=== PATIENT | male | born 1955 | race Caucasian/White ===

== ENCOUNTER 2022-05-14 20:48 | Emergency (ER) | payer MEDICARE, SELFPAY ==
[2022-05-14 20:54] VITALS: BP 190/88; PULSE 62; RESP 19; TEMP 37.9; O2SAT 97; BMI 29.1
--- NOTE | 2022-05-14 20:54 | ED_ITS ---
HPI - Sepsis General Chief Complaint: Fever Evaluation Narrative: 66-year-old male nonsmoker with history of hypertension presents with his in the chief complaint of about 24 hours of chills, fever and frequent episodes of diarrhea. He and other friends and family were out at a restaurant and he ate some chili that tasted bad, easy only person that ate this chili, he is also the only person that has been sick. About 3-4 hours after eating a chili he started having frequent loose stools, stating even up to 15 episodes of diarrhea yesterday. He is nauseated but denies vomiting. He denies any chest pain or shortness of breath. He does have a poor appetite. He has decreased urine output and states it has become dark. He denies any recent antibiotics or international travel Review of Systems Review of Systems Narrative: GENERAL: See HPI HEENT: Denies sinus pain, ear pain, sore throat, difficulty swallowing, dizziness. RESPIRATORY: Denies dyspnea, cough, wheezing, hemoptysis, sputum. CARDIOVASCULAR: Denies chest pain, palpitations, orthopnea, edema, GASTROINTESTINAL: See HPI : Denies dysuria, frequency, incontinence, hematuria, urinary retention. MUSCULOSKELETAL: denies weakness, joint pain, or bony pain SKIN: Denies rash, skin lesions, or other NEUROLOGIC: Denies weakness, headache, numbness, change in speech, confusion, seizures, incoordination. PSYCHIATRIC: No concerning psychosocial issues. 12 point review of systems is negative except for those stated above Patient History Social History Smoking Status: Never smoker Exam Narrative Exam Narrative: GENERAL: [66] year old patient appears stated age. Well-developed patient, in mild distress. HEAD: Atraumatic. Normocephalic. EYES: Pupils equal round and reactive. Extraocular motions intact. No scleral icterus. No injection or drainage. ENT: Nose without bleeding, purulent drainage. Throat without erythema, tonsillar hypertrophy or exudate. Airway patent. NECK: Trachea midline. Non tender CARDIOVASCULAR: Regular rate and rhythm without murmurs, gallops, or rubs. RESPIRATORY: Clear to auscultation. Breath sounds equal bilaterally. No wheezes, rales, or rhonchi. GASTROINTESTINAL: Abdomen soft, non-tender, nondistended. EXTREMITIES: No edema or joint tenderness. BACK: Nontender without deformity or crepitance. No flank tenderness. NEURO: AOx3. SKIN: No rash or erythema of visible areas Initial Vital Signs Initial Vital Signs: Vital Signs Temperature 100.2 F H 05/14/22 20:54 Pulse Rate 62 05/14/22 20:54 Respiratory Rate 19 05/14/22 20:54 Blood Pressure 190/88 H 05/14/22 20:54 Pulse Oximetry 97 05/14/22 20:54 Oxygen Delivery Method 05/14/22 20:54 Course Orders Ordered: ED Orders 05/14/22 21:06 COVID19 -Nasal RAPID/Pre-Proc Stat 05/14/22 21:22 Complete Blood Count AUTO DIFF Stat Comprehensive Metabolic Panel Stat 05/14/22 21:35 Blood Culture Stat 05/14/22 22:44 Urinalysis and Microscopic Stat 05/15/22 02:50 GI Panel (Film Array) Stat Discontinued Medications Sodium Chloride (Normal Saline 0.9%) 1,000 mls @ 1,000 mls/hr IV BOLUS ONE Stop: 05/14/22 22:29 Last Infusion: 05/14/22 22:31 Dose: 0 mls/hr Documented By: Admin: 05/14/22 21:30 Dose: 1,000 mls/hr Documented By: KODI Sodium Chloride (Normal Saline 0.9%) 1,000 mls @ 1,000 mls/hr IV BOLUS ONE Stop: 05/14/22 23:57 Last Infusion: 05/15/22 00:50 Dose: 0 mls/hr Documented By: Admin: 05/14/22 23:10 Dose: 1,000 mls/hr Documented By: KODI Ketorolac Tromethamine (Ketorolac 30 Mg/Ml Vial) 15 mg IV NOW ONE Stop: 05/14/22 22:50 Last Admin: 05/14/22 23:09 Dose: 15 mg Documented By: KODI Ondansetron HCl (Ondansetron 4 Mg/2 Ml Inj) 4 mg IV NOW ONE Stop: 05/14/22 22:59 Last Admin: 05/14/22 23:09 Dose: 4 mg Documented By: KODI Pantoprazole Sodium (Pantoprazole 40 Mg Vial) 40 mg IV NOW ONE Stop: 05/14/22 22:59 Last Admin: 05/14/22 23:09 Dose: 40 mg Documented By: CTS Vital Signs Vital signs: Vital Signs - 8 hr 05/14/22 20:54 Temperature 100.2 F H Pulse Rate 62 Respiratory Rate 19 Blood Pressure 190/88 H Pulse Oximetry 97 Oxygen Delivery Method Room Air Sepsis Guideline Criteria Treatment Initiated Antibiotics:: IV antimicrobials will be initiated as soon as possible after recognition of sepsis state and within one hour for both sepsis and septic shock. MDM - Sepsis Lab Data Result diagrams: 05/14/22 21:05/14/22: Labs: Lab Results 05/14/22 05/14/22 05/14/22 Range/Units 21:06 21:22 21: WBC 8.8 (4.5-11.0) X10^3/uL RBC 4.32 L (4.5-5.9) X10^6/uL Hgb 13.6 (13.5-17.5) g/dL Hct 39.2 L (41-53) % MCV 90.8 (80-100) fL MCH 31.4 (26-34) PG MCHC 34.6 (30-36) % RDW 13.9 (11.6-14.8) % Plt Count 206 (150-400) X10^3/uL Neut % (Auto) 85.8 H (50-75) % Lymph % (Auto) 6.9 L (25-40) % [place] % (Auto) 4.7 (3-14) % Eos % (Auto) 2.2 (2-4) % Baso % (Auto) 0.4 (0-2) % Neut # (Auto) 7500 H (1905-8140) /uL Lymph # (Auto) 600 L (3345-8134) /uL [place] # (Auto) 400 (0-900) /uL Eos # (Auto) 200 (0-450) /uL Baso # (Auto) 0 (0-100) /uL Sodium 134 L (137-145) mmol/L Potassium 3.9 (3.4-5.1) mmol/L Chloride 105 (98-107) mmol/L Carbon Dioxide 19 L (22-32) mmol/L BUN 16 (9-20) mg/dL Creatinine 1.01 (0.66-1.25) mg/dL Estimated GFR > 60 (>60) mL/min BUN/Creatinine Ratio 15.8 (6-22) Glucose 145 H (80-110) mg/dL Calcium 8.4 (8.4-10.2) mg/dL Total Bilirubin 1.3 (0.2-1.3) mg/dL AST 21 (17-59) IU/L ALT 19 (<50) IU/L Alkaline Phosphatase 62 (38-126) U/L Total Protein 7.2 (6.3-8.2) g/dL Albumin 4.2 (3.5-5.0) g/dL Globulin 3.0 (1.7-4.1) g/dL Albumin/Globulin Ratio 1.4 (1.0-2.8) Urine Color Urine Appearance Urine pH (4.5-8.0) Ur Specific [place] (1.000-1.035) Urine Protein (Negative) Urine Glucose (UA) (Negative) g/dL Urine Ketones (NEGATIVE) Urine Occult Blood (Negative) Urine Nitrate (Negative) Urine Bilirubin (NEGATIVE) Urine Urobilinogen (0.2) E.U./dL Ur Leukocyte Esterase (NEGATIVE) Urine RBC (0-5/HPF) Urine WBC (0-5/HPF) Urine Bacteria (None) Ur Culture Indicated? Micro UA Comment Stl C. cayetanensis PCR (Not Detect) Stool Rotavirus (PCR) (Not Detect) Stool Adenovirus (PCR) (Not Detect) Stool Astrovirus (PCR) (Not Detect) Stool Cryptosporidium PCR (Not Detect) Stl E.coli Shiga Tox PCR (Not Detect) St Sh/Enteroin Ecoli PCR (Not Detect) Stool E coli O157 PCR (Not Detect) Stl Enterotoxigenic E PCR (Not Detect) Stool EPEC (PCR) (Not Detect) Stl E. histolytica PCR (Not Detect) Stool Giardia Lamblia PCR (Not Detect) Stool Sapovirus (PCR) (Not Detect) Stl P. shigelloides PCR (Not Detect) St Y.enterocolitica PCR (Not Detect) Stool Vibrio (PCR) (Not Detect) Stl Vibrio cholerae PCR (Not Detect) Stl Enteroaggr Ecoli PCR (Not Detect) Stl Norovirus GI/GII PCR (Not Detect) Campylobacter (PCR) (Not Detect) C. difficile Tox (PCR) (Not Detect) SARS-CoV-2 (PCR) Negative (Negative) Salmonella (PCR) (Not Detect) 08/05/22 08/06/22 Range/Units 22:44 02:50 WBC (4.5-11.0) X10^3/uL RBC (4.5-5.9) X10^6/uL Hgb (13.5-17.5) g/dL Hct (41-53) % MCV (80-100) fL MCH (26-34) PG MCHC (30-36) % RDW (11.6-14.8) % Plt Count (150-400) X10^3/uL Neut % (Auto) (50-75) % Lymph % (Auto) (25-40) % [place] % (Auto) (3-14) % Eos % (Auto) (2-4) % Baso % (Auto) (0-2) % Neut # (Auto) (0395-1521) /uL Lymph # (Auto) (8579-3150) /uL [place] # (Auto) (0-900) /uL Eos # (Auto) (0-450) /uL Baso # (Auto) (0-100) /uL Sodium (137-145) mmol/L Potassium (3.4-5.1) mmol/L Chloride (98-107) mmol/L Carbon Dioxide (22-32) mmol/L BUN (9-20) mg/dL Creatinine (0.66-1.25) mg/dL Estimated GFR (>60) mL/min BUN/Creatinine Ratio (6-22) Glucose (80-110) mg/dL Calcium (8.4-10.2) mg/dL Total Bilirubin (0.2-1.3) mg/dL AST (17-59) IU/L ALT (<50) IU/L Alkaline Phosphatase (38-126) U/L Total Protein (6.3-8.2) g/dL Albumin (3.5-5.0) g/dL Globulin (1.7-4.1) g/dL Albumin/Globulin Ratio (1.0-2.8) Urine Color Yellow Urine Appearance Clear Urine pH 5.0 (4.5-8.0) Ur Specific [place] <=1.005 (1.000-1.035) Urine Protein Negative (Negative) Urine Glucose (UA) Negative (Negative) g/dL Urine Ketones Negative (NEGATIVE) Urine Occult Blood Trace-lysed (Negative) Urine Nitrate Negative (Negative) Urine Bilirubin Negative (NEGATIVE) Urine Urobilinogen 0.2 (0.2) E.U./dL Ur Leukocyte Esterase Negative (NEGATIVE) Urine RBC None seen (0-5/HPF) Urine WBC None seen (0-5/HPF) Urine Bacteria None seen (None) Ur Culture Indicated? Cult not indicated Micro UA Comment Microscopic normal Stl C. cayetanensis PCR Not detected (Not Detect) Stool Rotavirus (PCR) Not detected (Not Detect) Stool Adenovirus (PCR) Not detected (Not Detect) Stool Astrovirus (PCR) Not detected (Not Detect) Stool Cryptosporidium PCR Not detected (Not Detect) Stl E.coli Shiga Tox PCR Not detected (Not Detect) St Sh/Enteroin Ecoli PCR Not detected (Not Detect) Stool E coli O157 PCR Not detected (Not Detect) Stl Enterotoxigenic E PCR Not detected (Not Detect) Stool EPEC (PCR) Not detected (Not Detect) Stl E. histolytica PCR Not detected (Not Detect) Stool Giardia Lamblia PCR Not detected (Not Detect) Stool Sapovirus (PCR) Not detected (Not Detect) Stl P. shigelloides PCR Not detected (Not Detect) St Y.enterocolitica PCR Not detected (Not Detect) Stool Vibrio (PCR) Not detected (Not Detect) Stl Vibrio cholerae PCR Not detected (Not Detect) Stl Enteroaggr Ecoli PCR Not detected (Not Detect) Stl Norovirus GI/GII PCR Detected H (Not Detect) Campylobacter (PCR) Not detected (Not Detect) C. difficile Tox (PCR) Not detected (Not Detect) SARS-CoV-2 (PCR) (Negative) Salmonella (PCR) Not detected (Not Detect) MDM Narrative Medical decision making narrative: Patient feeling significant improvement after above-stated therapies. He receives 2 bags of IV fluid was able to tolerate orals and ambulatory through the department. Return precautions discussed and questions answered to his apparent satisfaction Discharge Plan Departure Patient Disposition: Home Clinical Impression: Diarrhea, Norovirus Instructions: Diarrhea, Norovirus Infection Activity Restrictions/Additional Instructions: *You have been diagnosed with [diarrhea and abdominal cramping likely due to food-borne illness] * As we discussed your history and physical exam as well as labs and imaging are very reassuring. There is no evidence of any severe diagnoses that would require a specific or immediate intervention. *What to do: *Please continue to take your regular medications as directed. *Please follow up with your primary care provider in 2-3 days, call for an appointment. Let them know you were seen in the Emergency Department and that we ask that you be seen in follow up. We will electronically transmit a record of today's note if your PCP is in our system *Please consider a clear liquid diet for the next 24-48 hours and then slowly advance to regular as tolerated. Also, try to avoid alcohol, nicotine, caffeine, spicy, acidic or fatty foods as this may worsen your symptoms *If you do not have a primary care provider please contact the [facility] Resource line at [phone]. They will ask some questions about your medical history and help get you set up with a doctor in the community. *Return to Emergency Department if you should have any new, worsening or concerning symptoms, such as [fever greater than 101 F, shaking chills, worsening pain, persistent vomiting or other bothersome symptoms] Visit Report Forms: Patient Portal/API
[2022-05-14 21:27] LABS: COVID19 -Nasal RAPID Negative (Negative)
[2022-05-14] MEDS: SODIUM CHLORIDE 0.9% 1,000 ML 1000 ML IV ×2 (21:30→23:10)
[2022-05-14 21:34] LABS: Add Manual Diff / Slide Review NO; Basophils Absolute Auto 0 /uL (0-100); Basophils Percent Auto 0.4 % (0-2); Eosinophils Absolute Auto 200 /uL (0-450); Eosinophils Percent Auto 2.2 % (2-4); Hematocrit 39.2 % (41-53); Hemoglobin 13.6 g/dL (13.5-17.5); Lymphocytes Absolute Auto 600 /uL (1100-4500); Lymphocytes Percent Auto 6.9 % (25-40); Mean Corpuscular HGB Conc 34.6 % (30-36); Mean Corpuscular Hemoglobin 31.4 PG (26-34); Mean Corpuscular Volume 90.8 fL (80-100); Monocytes Absolute Auto 400 /uL (0-900); Monocytes Percent Auto 4.7 % (3-14); Neutrophils Absolute Auto 7500 /uL (1500-7000); Neutrophils Percent Auto 85.8 % (50-75); Platelet Count 206 X10^3/uL (150-400); Red Blood Cell Count 4.32 X10^6/uL (4.5-5.9); Red Cell Distribution Width 13.9 % (11.6-14.8); White Blood Cell Count 8.8 X10^3/uL (4.5-11.0)
[2022-05-14 21:48] LABS: Alanine Aminotransferase 19 IU/L (<50); Albumin 4.2 g/dL (3.5-5.0); Albumin Globulin Ratio 1.4 (1.0-2.8); Alkaline Phosphatase 62 U/L (38-126); Aspartate Aminotransferase 21 IU/L (17-59); BUN Creatinine Ratio 15.8 (6-22); Bilirubin Total 1.3 mg/dL (0.2-1.3); Blood Urea Nitrogen 16 mg/dL (9-20); Calcium 8.4 mg/dL (8.4-10.2); Carbon Dioxide 19 mmol/L (22-32); Chloride 105 mmol/L (98-107); Estimated Glomerular Filt Rate > 60 mL/min (>60); Glucose 145 mg/dL (80-110); HEMOLYSIS < 15 (0-50); Potassium 3.9 mmol/L (3.4-5.1); Sodium 134 mmol/L (137-145); Total Protein 7.2 g/dL (6.3-8.2)
[2022-05-14 22:54] LABS: Appearance Urine UA CLEAR; Bilirubin Urine UA NEGATIVE (NEGATIVE); Color Urine UA YELLOW; Glucose Urine UA NEGATIVE (Negative); Ketones Urine UA NEGATIVE (NEGATIVE); Leukocyte Esterase Urine UA NEGATIVE (NEGATIVE); Nitrite Urine UA NEGATIVE (Negative); Occult Blood Urine UA TRACE-LYSED (Negative); Protein Urine UA NEGATIVE (Negative); Specific Gravity Urine UA <=1.005 (1.000-1.035); Urobilinogen Urine UA 0.2 E.U./dL (0.2)
[2022-05-14 22:56] LABS: Bacteria Urine None Seen; Culture Indicated Urine Cult Not Indicated; RBC Urine None Seen (0-5/HPF); Urine Comments Microscopic Normal; WBC Urine None Seen (0-5/HPF)
[2022-05-14] MEDS: ONDANSETRON 4 MG/2 ML INJ IV (23:09)
[2022-05-14] MEDS: PANTOPRAZOLE 40 MG VIAL IV (23:09)
[2022-05-14] MEDS: KETOROLAC 30 MG/ML VIAL 15 MG IV (23:09)
[2022-05-15 04:17] LABS: Adenovirus F 40/41 Not Detected (Not Detect); Astrovirus Not Detected (Not Detect); Campylobacter Not Detected (Not Detect); Clostridium difficile toxin AB Not Detected (Not Detect); Cryptosporidium Not Detected (Not Detect); Cyclospora cayetanensis Not Detected (Not Detect); Entamoeba histolytica Not Detected (Not Detect); Enteroaggregative E.coli Not Detected (Not Detect); Enteropathogenic E.coli Not Detected (Not Detect); Enterotoxigenic E.coli It/st Not Detected (Not Detect); Giardia lamblia Not Detected (Not Detect); Norovirus GI/GII Detected (Not Detect); Plesiomonsa shigelloides Not Detected (Not Detect); Rotavirus A Not Detected (Not Detect); Salmonella Not Detected (Not Detect); Sapovirus Not Detected (Not Detect); Shiga-like toxin-prod E.coli Not Detected (Not Detect); Shigella/Enteroinvasive E.coli Not Detected (Not Detect); Vibrio Not Detected (Not Detect); Vibrio cholerae Not Detected (Not Detect); Yersinia enterocolitica Not Detected (Not Detect)
== END 2022-05-15 02:54 | disposition home or self-care (01) ==
PROVIDERS: Emergency Provider Emergency Medicine
DX: A08.39 Other viral enteritis (principal); Z20.822 Contact with and (suspected) exposure to COVID-19
CPT/HCPCS: 36415; 80053; 81001; 85025; 87040; 87507; 87635; 96361; 96374; 96375; 99284; C9803; C9113; J1885; J2405